=== PATIENT | female | born 1995 | race Caucasian/White ===

== ENCOUNTER 2022-03-22 10:56 | Observation (INO) | payer BC ==
[2022-03-22] MEDS ORDERED: Sodium Chloride 0.9% 20 ML SDV IV PRN (12:14)
[2022-03-22] MEDS ORDERED: Sodium Chloride 0.9% 10 ML Syringe FLUSH PRN (12:14)
[2022-03-22] MEDS ORDERED: Sodium Chloride 0.9% 2.5 ML Syringe FLUSH PRN (12:14)
[2022-03-22] MEDS ORDERED: Lactated Ringers 1,000 ML IV ONE (12:15)
[2022-03-22] MEDS ORDERED: ceFAZolin 2 GM in Premix Bag 1 BAG IV ONE (12:17)
[2022-03-22] MEDS ORDERED: Acetaminophen 500 MG Tab PO ONE (12:27)
[2022-03-22] MEDS ORDERED: ceFAZolin 2 GM in Sodium Chloride 0.9% 50 ML IV ONE (13:15)
[2022-03-22 13:51] LABS: CARBON DIOXIDE,CO2 22.5 mmol/L (21.0-32.0); POTASSIUM,K 4.6 mmol/L (3.5-5.1)
[2022-03-22] MEDS: Lactated Ringers 1,000 ML IV SCH (15:50)
[2022-03-22] MEDS ORDERED: Acetaminophen 500 MG Tab PO PRN (17:00)
[2022-03-22] MEDS: Acetaminophen 500 MG Tab PO SCH ×2 (17:03→23:30)
[2022-03-22] MEDS ORDERED: Methylergonovine 0.2 MG/1 ML Amp ONE (23:04)
[2022-03-22] MEDS: ceFAZolin 1 GM in Premix Bag 1 BAG IV SCH (23:35)
[2022-03-23] MEDS: Lactated Ringers 1,000 ML IV SCH ×3 (04:15→19:26)
[2022-03-23] MEDS: ceFAZolin 1 GM in Premix Bag 1 BAG IV SCH ×2 (06:48→15:05)
[2022-03-23] MEDS: Acetaminophen 500 MG Tab PO SCH ×3 (06:52→18:53)
[2022-03-24] MEDS: Acetaminophen 500 MG Tab PO SCH ×2 (01:00→06:50)
[2022-03-24] MEDS: Lactated Ringers 1,000 ML IV SCH (02:12)
[2022-03-24] MEDS: ceFAZolin 1 GM in Premix Bag 1 BAG IV SCH ×3 (08:06)
== END 2022-03-24 12:00 | disposition home or self-care (01) ==
LOC: MW.OBCHECK 10:56 → MW.OB 10:57 → MW.OBCHECK 15:10 → MW.OB 15:15
PROVIDERS: ADMIT Obstetrics & Gynecology; ATTEND Obstetrics & Gynecology
DX: O23.03 Infections of kidney in pregnancy, third trimester (principal); O16.3 Unspecified maternal hypertension, third trimester; Z98.890 Other specified postprocedural states; Z88.1 Allergy status to other antibiotic agents; Z3A.33 33 weeks gestation of pregnancy
CPT/HCPCS: 36415; 59025; 80053; 81001; 85025; 87086; 87088; 87186; 96361; 96365; 96366; 96376; A9270; G0378; J0690; J7120

== ENCOUNTER 2022-04-28 21:06 | Inpatient (IN) | payer BC ==
[2022-04-28] MEDS ORDERED: Tranexamic Acid 1,000 MG in Sodium Chloride 0.9% 100 ML IV PRN (21:56)
[2022-04-28] MEDS ORDERED: Lidocaine 1% 50 ML MDV INJECT PRN (21:56)
[2022-04-28] MEDS ORDERED: Misoprostol 200 MCG Tab PO PRN (21:56)
[2022-04-28] MEDS ORDERED: Misoprostol 25 MCG (1/4 of 100 MCG) Tab VAG PRN (21:56)
[2022-04-28] MEDS ORDERED: Sodium Chloride 0.9% 10 ML Syringe FLUSH PRN (21:56)
[2022-04-28] MEDS ORDERED: Methylergonovine 0.2 MG/1 ML Amp IM PRN (21:56)
[2022-04-28] MEDS ORDERED: Carboprost Tromethamine 250 MCG/1 ML Amp IM PRN (21:56)
[2022-04-28] MEDS ORDERED: Sodium Chloride 0.9% 2.5 ML Syringe FLUSH PRN (21:56)
[2022-04-28] MEDS ORDERED: Sodium Chloride 0.9% 20 ML SDV IV PRN (21:56)
[2022-04-28] MEDS ORDERED: Water For Irrigation,Sterile 1,000 ML Container IRR PRN (21:56)
[2022-04-28] MEDS ORDERED: Terbutaline 1 MG/ML SDV SUBCUT PRN (21:56)
[2022-04-28] MEDS ORDERED: Oxytocin/0.9 % Sodium Chloride 30 UNIT/500 ML BAG IV SCH ×2 (22:00)
[2022-04-29] MEDS: Misoprostol 25 MCG (1/4 of 100 MCG) Tab VAG PRN ×2 (03:00→06:59)
[2022-04-29] MEDS ORDERED: Acetaminophen 500 MG Tab PO ONE (05:07)
[2022-04-29] MEDS ORDERED: ePHEDrine 50 MG/ML SDV IVPUSH PRN ×2 (08:40)
[2022-04-29] MEDS ORDERED: Phenylephrine HCl In 0.9% NaCl 1 MG/10 ML Vial IVPUSH PRN (08:40)
[2022-04-29] MEDS ORDERED: Ropivacaine HCl/PF 400 MG in Premix Bag 1 BAG EPIDUR SCH (08:45)
[2022-04-29] MEDS: Lactated Ringers 1,000 ML IV SCH ×3 (11:24→19:00)
[2022-04-29] MEDS: Butorphanol 1 MG/ML SDV IVPUSH PRN ×2 (15:46→17:23)
[2022-04-29] MEDS: Phenylephrine HCl In 0.9% NaCl 1 MG/10 ML Vial IVPUSH SCH (20:28)
[2022-04-29] MEDS ORDERED: Ondansetron 4 MG/2 ML SDV IVPUSH PRN (23:35)
[2022-04-30] MEDS: Lactated Ringers 1,000 ML IV SCH (01:28)
[2022-04-30] MEDS ORDERED: Ibuprofen 800 MG Tab PO PRN (03:14)
[2022-04-30] MEDS ORDERED: Docusate Sodium 100 MG Cap PO PRN (03:14)
[2022-04-30] MEDS ORDERED: Ibuprofen 400 MG Tab PO PRN (03:14)
[2022-04-30] MEDS ORDERED: Lanolin 100% Cream 7 GM Tube TOP PRN (03:14)
[2022-04-30] MEDS ORDERED: Acetaminophen 500 MG Tab PO PRN (03:14)
[2022-04-30] MEDS ORDERED: Benzocaine/Menthol 20%-0.5% Spray 78 GM Cannister TOP PRN (03:14)
[2022-04-30] MEDS ORDERED: Bisacodyl 10 MG Supp RECTAL PRN (03:14)
[2022-04-30] MEDS ORDERED: Witch Hazel Medicated Pads 40/Jar TOP PRN (03:14)
[2022-04-30] MEDS ORDERED: oxyCODONE 5 MG Tab PO PRN (03:14)
[2022-04-30] MEDS: Labetalol 100 MG Tab PO SCH ×3 (06:24→22:39)
[2022-04-30] MEDS: Acetaminophen 500 MG Tab PO PRN ×2 (06:28→20:29)
[2022-05-01] MEDS: Labetalol 100 MG Tab PO SCH (06:47)
[2022-05-01 06:51] LABS: CARBON DIOXIDE,CO2 22.2 mmol/L (21.0-32.0); POTASSIUM,K 3.8 mmol/L (3.5-5.1)
== END 2022-05-01 12:37 | disposition home or self-care (01) | DRG 560 ==
LOC: MW.OB 21:06 → MW.OBCHECK 21:06 → MW.OB 21:57 → OBSVTOIN 04-30 02:47 → MW.OB 04-30 05:00
PROVIDERS: ADMIT Obstetrics & Gynecology; ATTEND Obstetrics & Gynecology
PROC: 10E0XZZ Delivery of Products of Conception, External Approach (ICD-10-PCS; principal; 2022-04-30)
PROC: 3E0P7VZ Introduction of Hormone into Female Reproductive, Via Natural or Artificial Opening (ICD-10-PCS; 2022-04-30)
PROC: 10907ZC Drainage of Amniotic Fluid, Therapeutic from Products of Conception, Via Natural or Artificial Opening (ICD-10-PCS; 2022-04-30)
PROC: 10H07YZ Insertion of Other Device into Products of Conception, Via Natural or Artificial Opening (ICD-10-PCS; 2022-04-30)
PROC: 3E0R3BZ Introduction of Anesthetic Agent into Spinal Canal, Percutaneous Approach (ICD-10-PCS; 2022-04-30)
PROC: 00HU33Z Insertion of Infusion Device into Spinal Canal, Percutaneous Approach (ICD-10-PCS; 2022-04-30)
DX: O10.92 Unspecified pre-existing hypertension complicating childbirth (principal); Z37.0 Single live birth; O99.214 Obesity complicating childbirth; O77.0 Labor and delivery complicated by meconium in amniotic fluid; Z20.822 Contact with and (suspected) exposure to COVID-19; H54.7 Unspecified visual loss; O76 Abnormality in fetal heart rate and rhythm complicating labor and delivery; O69.1XX0 Labor and delivery complicated by cord around neck, with compression, not applicable or unspecified; Z3A.38 38 weeks gestation of pregnancy; Z87.891 Personal history of nicotine dependence; Z79.82 Long term (current) use of aspirin; Z90.89 Acquired absence of other organs
CPT/HCPCS: 01967; 36415; 51702; 59025; 59409; 80053; 82803; 85025; 86592; 86850; 86900; 86901; A9270-GY; J0595; J2405; J2590; J7120; U0002